=== PATIENT | female | born 1970 | race Caucasian/White ===

== ENCOUNTER → 2019-11-09 | Outpatient (CLI) | payer BC ==
[~2019-11-09] MED LIST: BIRTH CONTROL ORAL; CHOL10002 PO; DHEA PO; EZET10-10; FLUO10 PO; FLUO20; GENERESS FE CH1 EACH PO; IBUP800 PO; LEVSOD50 PO; LEVSOD75 PO; LINZESS290 MCG PO; LIOT25 PO; MIRALAX17 GM PO; Percocet 5-3251 EACH PO; VITAMIN D3125 MC4 PO; Vitamin B Comple1 EA PO
[2019-11-11 19:09] LABS: HPV 16 Negative (Negative); HPV 18 Negative (Negative); HPV OTHER HR TYPES Negative (Negative)
== END | disposition home or self-care (01) ==
LOC: LAB SHORT 16:20 → LAB 16:20
PROVIDERS: Obstetrics & Gynecology
DX: N95.0 Postmenopausal bleeding (principal)
CPT/HCPCS: 87624; G0123

== ENCOUNTER → 2019-11-09 | Outpatient (CLI) | payer BC | END | disposition home or self-care (01) | LOC: PLD 08:08 → LAB SHORT 08:08 | DX: N95.0 Postmenopausal bleeding (principal) | CPT/HCPCS: 88305 ==

== ENCOUNTER 2021-05-07 07:00 | Day surgery (SDC) | payer BC ==
[~2021-05-07] VITALS: Ht 157.5 cm; Wt 61.9 kg
[~2021-05-07 07:00] MED LIST changes: +EUTHYROX50 MCG PO; -LEVSOD75 PO
--- NOTE | 2021-05-07 08:51 | NUR ---
05/07/21 0851 Patito Arteaga PRP SENT TO OR PER ORDERS
== END 2021-05-07 11:30 | disposition home or self-care (01) ==
LOC: ORSCSDS 07:00
PROVIDERS: Orthopaedic Surgery
PROC: 0LS34ZZ Reposition Right Upper Arm Tendon, Percutaneous Endoscopic Approach (ICD-10-PCS; principal; 2021-05-07 08:30)
PROC: 0LQ14ZZ Repair Right Shoulder Tendon, Percutaneous Endoscopic Approach (ICD-10-PCS; principal; 2021-05-07 08:30)
PROC: 0RNJ4ZZ Release Right Shoulder Joint, Percutaneous Endoscopic Approach (ICD-10-PCS; principal; 2021-05-07 08:30)
DX: M75.111 Incomplete rotator cuff tear or rupture of right shoulder, not specified as traumatic (principal); S46.001A Unspecified injury of muscle(s) and tendon(s) of the rotator cuff of right shoulder, initial encounter; M75.21 Bicipital tendinitis, right shoulder; M75.41 Impingement syndrome of right shoulder; E03.9 Hypothyroidism, unspecified; Z79.899 Other long term (current) drug therapy; F41.9 Anxiety disorder, unspecified
CPT/HCPCS: A9270; C1713; J0171; J0690; J1100; J1885; J2250; J2405; J2704; J3010; J7120

== ENCOUNTER 2024-03-04 02:42 | Day surgery (SDC) | payer BC ==
[2024-03-04 08:41] VITALS: BP 125/64
[2024-03-04] MEDS ORDERED: ALORA1 EA11 TD (08:49)
== END 2024-03-04 09:49 | disposition home or self-care (01) ==
LOC: ATC 02:42
DX: N39.46 Mixed incontinence (principal); E03.9 Hypothyroidism, unspecified; K58.1 Irritable bowel syndrome with constipation; E78.5 Hyperlipidemia, unspecified; F31.9 Bipolar disorder, unspecified; Z79.890 Hormone replacement therapy; Z79.899 Other long term (current) drug therapy; Z90.710 Acquired absence of both cervix and uterus
CPT/HCPCS: 51798